=== PATIENT | female | born 1950 | race Caucasian/White ===

== ENCOUNTER 2017-03-30 09:39 | Outpatient (CLI) | payer MEDICARE, BC | END 2017-03-30 15:52 | disposition home or self-care (01) | LOC: HPC 09:39 | DX: Z09 Encounter for follow-up examination after completed treatment for conditions other than malignant neoplasm (principal); K80.12 Calculus of gallbladder with acute and chronic cholecystitis without obstruction; R10.9 Unspecified abdominal pain | CPT/HCPCS: G0463 ==